=== PATIENT | female | born 1980 | race Caucasian/White ===

== ENCOUNTER 2018-11-22 12:14 | Emergency (ER) | payer MEDICAID, OTHER ==
[~2018-11-22] VITALS: Ht 157.5 cm; Wt 83.6 kg
[~2018-11-22 12:14] MED LIST: OMEP40CA6 PO
[2018-11-22 13:06] VITALS: BP 113/76
[2018-11-22 13:26] LABS: MICROSCOPIC NOT IND
[2018-11-22 13:30] LABS: CULTURE INDICATED? NO
[2018-11-22 13:37] LABS: BASOPHILS # (AUTO) 0.04 x10^3/uL (0-0.1); BASOPHILS % (AUTO) 0 % (0-1); EOSINOPHILS # (AUTO) 0.25 x10^3/uL (0-0.4); EOSINOPHILS % (AUTO) 3 % (1-7); LYMPHOCYTES # (AUTO) 2.88 x10^3/uL (1-3.4); LYMPHOCYTES % (AUTO) 28 % (22-44); MD NO; MEAN CORPUSCULAR HEMOGLOBIN 28.5 pg (27.0-34.8); MEAN CORPUSCULAR HGB CONC 33.7 g/dL (32.4-35.8); MEAN CORPUSCULAR VOLUME 84.4 fL (80-100); MONOCYTES # (AUTO) 0.57 x10^3/uL (0.2-0.8); MONOCYTES % (AUTO) 6 % (2-9); NEUTROPHILS # (AUTO) 6.46 x10^3/uL (1.8-6.8); NEUTROPHILS % (AUTO) 63 % (42-75); PLATELET COUNT 326 x10^3/uL (130-400); RED BLOOD COUNT 5.07 x10^6/uL (3.82-5.3)
[2018-11-22 13:50] LABS: ALANINE AMINOTRANSFERASE 42 U/L (12-78); ALBUMIN 3.5 g/dL (3.4-5.0); ANION GAP 3 mmol/L (5-15); CALCIUM 8.5 mg/dL (8.5-10.1); CHLORIDE 109 mmol/L (98-107); CREATININE 0.62 mg/dL (0.55-1.02)
[2018-11-22 13:54] LABS: ALKALINE PHOSPHATASE 124 U/L (45-117); BILIRUBIN,TOTAL 0.3 mg/dL (0.2-1.0)
--- NOTE | 2018-11-22 16:30 | NUR ---
PT TO ROOM FROM LOBBY. ASSUMING CARE AT THIS TIME.
[2018-11-22] MEDS ORDERED: ONDANSETRON ODT 4 MG PO ONE (17:00)
[2018-11-22] MEDS ORDERED: KETOROLAC 30 MG/1 ML IM ONE (17:00)
[2018-11-22] MEDS ORDERED: HYDROmorphone 1 MG/ML, 1ML IM ONE (17:00)
[2018-11-22] MEDS ORDERED: KETOROLAC 30 MG/1 ML ONE (17:10)
[2018-11-22] MEDS ORDERED: ONDANSETRON ODT 4 MG ONE (17:10)
[2018-11-22] MEDS ORDERED: HYDROmorphone 1 MG/ML, 1ML ONE (17:11)
--- NOTE | 2018-11-22 18:01 | NUR ---
Patient/Caregiver given discharge instructions and they have confirmed that they understand the instructions. Patient ambulatory with steady gait.
== END 2018-11-22 18:46 | disposition home or self-care (01) ==
LOC: ED 18:05
DX: K80.20 Calculus of gallbladder without cholecystitis without obstruction (principal); Z98.890 Other specified postprocedural states; Z90.710 Acquired absence of both cervix and uterus; Z90.49 Acquired absence of other specified parts of digestive tract
CPT/HCPCS: 36415; 76700; 80053; 81003; 83690; 84703; 85025; 96372; 99284; J1170; J1885; Q0162

== ENCOUNTER 2019-04-10 15:46 | Emergency (ER) | payer MEDICAID ==
[~2019-04-10] VITALS: Ht 157.5 cm; Wt 85.0 kg
[2019-04-10 16:20] LABS: BASOPHILS # (AUTO) 0.09 x10^3/uL (0-0.1); BASOPHILS % (AUTO) 1 % (0-1); EOSINOPHILS # (AUTO) 0.32 x10^3/uL (0-0.4); EOSINOPHILS % (AUTO) 3 % (1-7); LYMPHOCYTES % (AUTO) 33 % (22-44); MD NO; MEAN CORPUSCULAR HEMOGLOBIN 28.4 pg (27.0-34.8); MEAN CORPUSCULAR HGB CONC 33.4 g/dL (32.4-35.8); MEAN PLATELET VOLUME 8.6 fL (7.4-10.4); MONOCYTES # (AUTO) 0.86 x10^3/uL (0.2-0.8); MONOCYTES % (AUTO) 8 % (2-9); NEUTROPHILS # (AUTO) 6.39 x10^3/uL (1.8-6.8); NEUTROPHILS % (AUTO) 56 % (42-75); PLATELET COUNT 395 x10^3/uL (130-400); RED BLOOD COUNT 5.01 x10^6/uL (3.82-5.3)
--- NOTE | 2019-04-10 16:23 | NUR ---
WEDDING COORDINATOR: PT TO ROOM FROM LOBBY
[2019-04-10 16:30] LABS: ALANINE AMINOTRANSFERASE 82 U/L (12-78); ALBUMIN 3.6 g/dL (3.4-5.0); ANION GAP 8 mmol/L (5-15); CALCIUM 8.8 mg/dL (8.5-10.1); CHLORIDE 109 mmol/L (98-107); CREATININE 0.65 mg/dL (0.55-1.02)
--- NOTE | 2019-04-10 16:31 | NUR ---
PT C/O PAIN IN RLQ ABD, R FLANK AREA. STATES SHE HAD RECENT ALONZO ON 03/17. SHE ATTEMPTED TO GO TO F/U APPOINTMENT C DR LYNCH, IN HER WORDS HE DID NOT LISTEN TO HER C/O OF CONTINUED PAIN SO SHE DECIDED TO COME HERE. PT DENIES N/V/D. PT TO NIBP, CONT PULSE OX
[2019-04-10 16:35] LABS: ALKALINE PHOSPHATASE 133 U/L (45-117); BILIRUBIN,TOTAL 0.3 mg/dL (0.2-1.0); TOTAL PROTEIN 7.9 g/dL (6.4-8.2)
--- NOTE | 2019-04-10 16:57 | NUR ---
PT TO US
[2019-04-10 17:00] VITALS: BP 129/69
--- NOTE | 2019-04-10 17:21 | NUR ---
PT BACK FROM US, PT UP TO BR WITH STEADY GAIT. UA COLLECTED AND SENT
[2019-04-10 17:30] LABS: TROPONIN I < 0.015 ng/mL (0.000-0.045)
[2019-04-10 17:33] LABS: MICROSCOPIC NOT IND
[2019-04-10 17:42] LABS: CULTURE INDICATED? NO
== END 2019-04-10 18:38 | disposition home or self-care (01) ==
LOC: ED 17:08
DX: R10.11 Right upper quadrant pain (principal); R11.2 Nausea with vomiting, unspecified; F17.200 Nicotine dependence, unspecified, uncomplicated; Z90.710 Acquired absence of both cervix and uterus; Z90.89 Acquired absence of other organs; Z98.890 Other specified postprocedural states
CPT/HCPCS: 36415; 74018; 76700; 80053; 81003; 83690; 84484; 84703; 85025; 99284

== ENCOUNTER 2019-08-21 10:29 | Outpatient (CLI) ==
[~2019-08-21 10:29] MED LIST changes: +OMEP40CA42 PO; -OMEP40CA6 PO
[2019-08-21 19:27] LABS: CRYPTOSPORIDIUM ANTIGEN Negative (Negative)
[2019-08-21 19:44] LABS: CLOSTRIDIUM DIFFICILE ANTIGEN POSITIVE
[2019-08-21 19:45] LABS: CLOSTRIDIUM DIFFICILE TOXIN POSITIVE (Negative)
== END 2019-08-21 23:59 | disposition home or self-care (01) ==
LOC: RAD 10:29
PROVIDERS: ATTEND Nurse Practitioner Family
DX: R10.813 Right lower quadrant abdominal tenderness (principal); R19.7 Diarrhea, unspecified; F17.200 Nicotine dependence, unspecified, uncomplicated
CPT/HCPCS: 76770; 76857; 87046; 87324; 87328; 87329; 87427

== ENCOUNTER 2020-04-27 20:42 | Emergency (ER) | payer BC, MEDICAID ==
[~2020-04-27] VITALS: Ht 157.5 cm; Wt 80.6 kg
[2020-04-27 21:50] LABS: BASOPHILS # (AUTO) 0.03 x10^3/uL (0-0.1); BASOPHILS % (AUTO) 0 % (0-1); EOSINOPHILS # (AUTO) 0.14 x10^3/uL (0-0.4); EOSINOPHILS % (AUTO) 2 % (1-7); LYMPHOCYTES # (AUTO) 2.55 x10^3/uL (1-3.4); LYMPHOCYTES % (AUTO) 32 % (22-44); MD NO; MEAN CORPUSCULAR HEMOGLOBIN 27.5 pg (27.0-34.8); MEAN CORPUSCULAR HGB CONC 32.7 g/dL (32.4-35.8); MEAN CORPUSCULAR VOLUME 84.2 fL (80-100); MEAN PLATELET VOLUME 9.5 fL (7.4-10.4); MONOCYTES # (AUTO) 0.53 x10^3/uL (0.2-0.8); MONOCYTES % (AUTO) 7 % (2-9); NEUTROPHILS # (AUTO) 4.78 x10^3/uL (1.8-6.8); NEUTROPHILS % (AUTO) 60 % (42-75); PLATELET COUNT 313 x10^3/uL (130-400); RED BLOOD COUNT 5.22 x10^6/uL (3.82-5.3); RED CELL DISTRIBUTION WIDTH 14.5 % (9.6-15.2)
[2020-04-27 21:54] LABS: ALANINE AMINOTRANSFERASE 46 U/L (12-78); ALBUMIN 3.7 g/dL (3.4-5.0); ANION GAP 6 mmol/L (5-15); CALCIUM 8.4 mg/dL (8.5-10.1); CHLORIDE 111 mmol/L (98-107); CREATININE 0.63 mg/dL (0.55-1.02)
[2020-04-27 21:58] LABS: ALKALINE PHOSPHATASE 109 U/L (45-117); BILIRUBIN,TOTAL 0.3 mg/dL (0.2-1.0); TOTAL PROTEIN 7.8 g/dL (6.4-8.2); TROPONIN I < 0.015 ng/mL (0.000-0.045)
[2020-04-27 22:57] VITALS: BP 149/88
[2020-04-27] MEDS ORDERED: KETOROLAC 30 MG/1 ML IVPush ONE (23:00)
[2020-04-27] MEDS ORDERED: PROCHLORPERAZINE 5 MG/ML, 2ML IVPush ONE (23:00)
[2020-04-27] MEDS ORDERED: DIPHENHYDRAMINE 50 MG/ML, 1ML IVPush ONE (23:00)
[2020-04-27] MEDS ORDERED: KETOROLAC 30 MG/1 ML ONE (23:21)
[2020-04-27] MEDS ORDERED: DIPHENHYDRAMINE 50 MG/ML, 1ML ONE (23:21)
[2020-04-27] MEDS ORDERED: PROCHLORPERAZINE 5 MG/ML, 2ML ONE (23:21)
== END 2020-04-28 00:24 | disposition home or self-care (01) ==
LOC: ED 04-28 00:22
DX: G43.009 Migraine without aura, not intractable, without status migrainosus (principal); F41.1 Generalized anxiety disorder; R07.89 Other chest pain; I51.7 Cardiomegaly; R42 Dizziness and giddiness; F17.210 Nicotine dependence, cigarettes, uncomplicated; Z90.710 Acquired absence of both cervix and uterus; Z90.89 Acquired absence of other organs
CPT/HCPCS: 36415; 71045; 80053; 84484; 85025; 93005; 96374; 96375; 99285; 99406; J0780; J1200; J1885